=== PATIENT | female | born 1965 | race American Indian/Alaskan Native ===

== ENCOUNTER 2020-06-30 09:26 | Emergency (ER) | payer MEDICARE ==
[2020-06-30 09:43] VITALS: BP 100/65
--- NOTE | 2020-06-30 12:19 | Emergency Department Report ---
ED Back Pain/Injury HPI - General Chief Complaint: Back Pain/Injury Stated Complaint: LOW BACK PAIN Time Seen by Provider: 06/30/20 10:14 Source: patient Limitations: No Limitations - History of Present Illness Initial Comments: 54-year-old female presents emerged department chief complaint of acute on chronic right-sided back pain that radiates down her right leg as well as pain to the heel. Patient reports both of these issues have been ongoing for the past many months but she recently moved here and does not have a primary care follow-up. She has past medical history of hypertension, depression, anxiety, and arthritis and is currently taking losartan. She denies any associated fever, chills, night sweats, to, discomfort or vision, nausea,, diarrhea, chest pain, shortness of breath, saddle anesthesia, urinary or bowel incontinence, urinary retention or any other associated symptoms. - Related Data Previous Rx's Medication Instructions Recorded Last Taken Type Naproxen 500 mg PO BID #20 tablet 06/30/20 Unknown Rx methOCARBAMOL [Robaxin TAB] 0 mg PO Q6HR #30 tablet 06/30/20 Unknown Rx Allergies Allergy/AdvReac Type Severity Reaction Status Date / Time No Known Allergies Allergy Unverified 06/30/20 09:42 ED Review of Systems ROS: Stated complaint: LOW BACK PAIN Other details as noted in HPI Comment: All other systems reviewed and negative Constitutional: denies: chills, fever Eyes: denies: eye pain, eye discharge, vision change ENT: denies: ear pain, throat pain Respiratory: denies: cough, shortness of breath, wheezing Cardiovascular: denies: chest pain, palpitations Endocrine: no symptoms reported Gastrointestinal: denies: abdominal pain, nausea, diarrhea Genitourinary: denies: urgency, dysuria, discharge Musculoskeletal: as per HPI, back pain. denies: joint swelling, arthralgia Skin: denies: rash, lesions Neurological: denies: headache, weakness, paresthesias Psychiatric: denies: anxiety, depression Hematological/Lymphatic: denies: easy bleeding, easy bruising ED Past Medical Hx - Past Medical History Previous Medical History?: Yes Hx Hypertension: Yes Hx Arthritis: Yes Hx Psychiatric Treatment: Yes - Surgical History Past Surgical History?: Yes Additional Surgical History: left knee replacement. Hysterectomy - Social History Smoking Status: Current Every Day Smoker Substance Use Type: None - Medications Home Medications: Home Medications Medication Instructions Recorded Confirmed Last Taken Type Naproxen 500 mg PO BID #20 tablet 06/30/20 Unknown Rx methOCARBAMOL [Robaxin TAB] 0 mg PO Q6HR #30 tablet 06/30/20 Unknown Rx ED Physical Exam - General Limitations: No Limitations General appearance: alert, in no apparent distress - Head Head exam: Present: atraumatic, normocephalic - Eye Eye exam: Present: normal appearance, PERRL, EOMI Pupils: Present: normal accommodation - ENT ENT exam: Present: normal exam, normal orophraynx, mucous membranes moist - Neck Neck exam: Present: normal inspection, full ROM. Absent: tenderness, meningismus - Respiratory Respiratory exam: Present: normal lung sounds bilaterally. Absent: respiratory distress, wheezes, rales, rhonchi, stridor - Cardiovascular Cardiovascular Exam: Present: regular rate, normal rhythm, normal heart sounds. Absent: systolic murmur, diastolic murmur, rubs, gallop - GI/Abdominal GI/Abdominal exam: Present: soft, normal bowel sounds. Absent: distended, tenderness, guarding, rebound, rigid, pulsatile mass - Extremities Exam Extremities exam: Present: normal inspection, full ROM, normal capillary refill, other (No posterior calf tenderness, normal DP and PT pulses. Mild tenderness to the insertion of the Achilles tendon at the right heel without edema. Negative Homans' sign bilaterally). Absent: tenderness, pedal edema, calf tenderness - Back Exam Back exam: Present: normal inspection, full ROM, muscle spasm, paraspinal tenderness (Mild tenderness to the right paraspinal area at the right buttocks. No midline tenderness of cervical, thoracic or lumbar spine. Ambulatory with steady gait.), other (Negative straight leg raise bilaterally). Absent: tenderness, CVA tenderness (R), CVA tenderness (L) - Neurological Exam Neurological exam: Present: alert, oriented X3, normal gait. Absent: motor sensory deficit - Psychiatric Psychiatric exam: Present: normal affect, normal mood - Skin Skin exam: Present: warm, dry, intact, normal color. Absent: rash ED Course Vital Signs 06/30/20 06/30/20 09:42 09:43 Temperature 98.5 F Pulse Rate 114 H Respiratory 18 Rate Blood Pressure 100/65 [Right] O2 Sat by Pulse 94 Oximetry ED Medical Decision Making - Medical Decision Making Patient nontoxic in no acute distress. Vital signs are stable. She is a low Wells criteria for DVT and no posterior calf tenderness and negative Homans' sign bilaterally. She had tenderness to the upper buttocks and states his pain is similar to when she has had sciatic nerve pain in the past. She had a negative straight leg raise. No fever. No saddle anesthesia, urinary or bowel incontinence, urinary tension making cauda equina syndrome or conus medullaris syndrome unlikely. She had no injuries making epidural hematoma unlikely. She no focal neurologic deficits. She no pulsatile masses or abdominal pain making an abdominal aortic dissection or abdominal aortic aneurysm less likely. Recommended supportive treatment, orthopedic and primary care follow-up and return the emerge department if develops any change or worsening symptoms. - Differential Diagnosis Strain, sprain, HNP Critical care attestation.: If time is entered above; I have spent that time in minutes in the direct care of this critically ill patient, excluding procedure time. ED Disposition Clinical Impression: Lumbosacral strain Qualifiers: Encounter type: initial encounter Qualified Code(s): S39.012A - Strain of muscle, fascia and tendon of lower back, initial encounter Disposition: DC-01 TO HOME OR SELFCARE Is pt being admited?: No Condition: Stable Instructions: Lumbosacral Strain Prescriptions: Naproxen 500 mg PO BID #20 tablet methOCARBAMOL [Robaxin TAB] 0 mg PO Q6HR #30 tablet Referrals: PRIMARY CARE, [Primary Care Provider] - 3-5 Days [facility] [Provider Group] - 3-5 Days [facility] [Provider Group] - 3-5 Days Forms: Work/School Release Form(ED) Time of Disposition: 12:20
== END 2020-06-30 12:30 | disposition home or self-care (01) ==
LOC: ED 09:26
DX: S39.012A Strain of muscle, fascia and tendon of lower back, initial encounter (principal); I10 Essential (primary) hypertension; M19.91 Primary osteoarthritis, unspecified site; F17.200 Nicotine dependence, unspecified, uncomplicated; Z90.710 Acquired absence of both cervix and uterus; Z98.890 Other specified postprocedural states; Z79.899 Other long term (current) drug therapy; X58.XXXA Exposure to other specified factors, initial encounter; Y93.89 Activity, other specified; Y92.89 Other specified places as the place of occurrence of the external cause; Y99.8 Other external cause status
CPT/HCPCS: 99282